=== PATIENT | male | born 1940 | race Caucasian/White ===

== ENCOUNTER 2020-03-08 13:54 | Outpatient (CLI) | payer OTHER | END 2020-03-08 23:59 | disposition home or self-care (01) | LOC: CARD DIAG 13:54 | PROVIDERS: ATTEND Internal Medicine | DX: I08.8 Other rheumatic multiple valve diseases (principal); J96.00 Acute respiratory failure, unspecified whether with hypoxia or hypercapnia | CPT/HCPCS: 70450; 93306 ==